=== PATIENT | female | born 1950 | race Caucasian/White ===

== ENCOUNTER → 2023-09-15 18:09 | Outpatient (CLI) | payer MEDICARE, OTHER, SELFPAY ==
--- NOTE | 2023-09-15 18:13 | DI.MRI.S_ITS ---
PROCEDURE: MR LUMBAR SPINE WO CON INDICATIONS: Progressive spinal stenosis TECHNIQUE: Noncontrast sagittal T1 spin echo and T2 fast echo, sagittal STIR, and T2 fast spin echo through the lumbar spine. In cases with scoliosis, additional coronal T2 fast spin echo may be performed. COMPARISON: None. FINDINGS: Image quality: Excellent. Alignment and Curvature: Mild dextrocurvature of the lumbar spine. Mild retrolisthesis of L1 on L2 and L2 on L3. Mild anterolisthesis of L4 on L5 and L5 on S1. Bone Marrow: Multilevel degenerative endplate changes. Schmorl's node involving the superior endplate of L4. Marrow is of normal overall signal. No acute vertebral body compression fractures. Spinal Cord: Conus medullaris terminates at the L2 level. Visualized cord demonstrates normal signal and size. Paraspinous Soft Tissues: No paravertebral masses. T12-L1: Severe disc desiccation height loss. Small posterior disc bulge. Facet arthropathy. Mild central canal and mild bilateral neural foraminal stenosis. L1-L2: Severe disc desiccation height loss. Small posterior disc bulge. Facet arthropathy. No significant central canal stenosis. Moderate left and no right neural foraminal stenosis. L2-L3: Disc desiccation height loss. Posterior disc bulge. Facet arthropathy and thickening of ligamentum flavum. Epidural lipomatosis. Severe central canal stenosis. Moderate right and moderate to severe left neural foraminal stenosis. L3-L4: Disc desiccation height loss. Posterior disc bulge. Facet arthropathy and thickening of ligamentum flavum. Epidural lipomatosis. Severe central canal stenosis. Moderate bilateral neural foraminal stenosis. L4-L5: Disc desiccation height loss. Posterior disc bulge. Facet arthropathy and thickening of ligamentum flavum. Epidural lipomatosis. Severe central canal stenosis. Mild bilateral neural foraminal stenosis. L5-S1: Disc desiccation and height loss. Minimal posterior disc bulge. Facet arthropathy. No central canal stenosis. Moderate bilateral neural foraminal stenosis. IMPRESSION: 1. Multilevel degenerative changes of the lumbar spine as described above. 2. Severe central canal stenosis at L2-L3, L3-L4 and L4-L5. 3. Moderate to severe left neural foraminal stenosis at L2-L3. Multilevel mild and moderate neural foraminal stenosis as above. Dictated by: Flex Jeffries M.D. on 09/16/2023 at 8:15 Approved by: Flex Jeffries M.D. on 09/16/2023 at 8:23
== END ==
PROVIDERS: PCP Family Medicine; Referring Provider Physical Medicine & Rehabilitation; Visit Provider Physical Medicine & Rehabilitation
DX: M48.061 Spinal stenosis, lumbar region without neurogenic claudication (principal); M48.07 Spinal stenosis, lumbosacral region; M47.816 Spondylosis without myelopathy or radiculopathy, lumbar region; M47.817 Spondylosis without myelopathy or radiculopathy, lumbosacral region
CPT/HCPCS: 72148

== ENCOUNTER 2023-10-09 13:20 | Outpatient (CLI) | payer MEDICARE, OTHER, SELFPAY ==
[2023-10-09 14:00] VITALS: BP 158/73; PULSE 85; RESP 16; TEMP 36.4; O2SAT 98
--- NOTE | 2023-10-09 14:00 | DI.RAD.S_ITS ---
PROCEDURE: PAIN L INTERLAMINAR/CAUDAL INJ INDICATIONS: L4/5 translaminar SHEA COMPARISON: [facility], RG, XR L-SPINE 2-3V, 03/24/2023, 11:17. FINDINGS: Fluoroscopic spot filming was performed to verify placement of spinal needle at the L4-5 level, as labeled on the films. Appropriate location of the needle tip was confirmed by injection of iodinated contrast. IMPRESSION: Intraprocedural examination demonstrates appropriate needle positioning. Approved by: Lane Elena M.D. on 10/09/2023 at 21:54
[2023-10-09 14:35] VITALS: BP 144/72; PULSE 77; RESP 18; O2SAT 95
[2023-10-09] MEDS: BUPIVACAINE 0.25% (PF) VIAL 2 ML INJ (14:36)
[2023-10-09] MEDS: BETAMETHASONE 30 MG/5 ML MDV 6 MG INJ (14:36)
[2023-10-09] MEDS: iopamidoL 15 ML VIAL 3 ML INJ (14:36)
[2023-10-09] MEDS: DEXAMETHASONE 10 MG/ML VIAL INJ (14:36)
[2023-10-09 14:40] VITALS: BP 164/72; PULSE 76; RESP 17; O2SAT 97
[2023-10-09 14:45] VITALS: BP 163/76; PULSE 77; RESP 16; O2SAT 97
[2023-10-09 14:50] VITALS: BP 149/61; PULSE 77; RESP 16; O2SAT 98
--- NOTE | 2023-10-09 14:54 | P.PCN_ITS ---
Date/Time/Diagnoses Date of procedure: 10/09/23 Time of procedure: 14:55 Pre-procedure diagnosis: 1. HNP WITH RADICULAR FEATURES, 2. MULTILEVEL CENTRAL STENOSIS, Post-procedure diagnosis: same Procedure Notes Procedure: 1. FLUOROSCOPICALLY GUIDED CONTRAST CONTROLLED INTERLAMINAR EPIDURAL STEROID INJECTION -L4/5 Indications: Dahlia is referred by Dr. Loya for treatment of Bilateral Foraminal Stenosis R>L LE symptoms. Physician: Travis Man Total Fluoroscopy time (seconds): 14 Total sedation minutes: 0 Complications: none Procedure in detail & Post-procedure care: FINDINGS Multilevel Central Spinal Stenosis with Nerve Root Compression DESCRIPTION OF PROCEDURE Fluoroscopically guided, contrast-controlled L4/5 translaminar epidural steroid injection. Following review of allergy and review of potential side effects and complications, including, but not necessarily limited to, infection, allergic reaction, local tissue breakdown, temporary as well as permanent nerve injury, paralysis, stroke and possible , the patient indicated that the patient understood and agreed to proceed. An informed consent document was signed by the patient, witnessed by a nurse, and placed in the patient's chart. Additionally, other treatment options including modalities, medications, and physical therapy were reviewed with the patient. After review of previous anaesthesic history and IV conscious sedation the patient was deemed safe to proceed with today?s procedure with IV conscious sedation as ASA class II designation. Safety time-out was performed to confirm patient ID, procedure to be performed and site of procedure. IV sedation was deemed unnecessary and thus not administered by the RN after DO order, titrated to patient comfort during the course of the procedure while the patient remained responsive to all verbal commands In the prone position, following sterile prep and drape of the lumbar region, the L4/5 translaminar space was identified fluoroscopically. The skin was anesthetized via a 25-gauge, 1.5inch needle with 1% lidocaine solution. At this point, a 22-gauge short bevel spinal needle was atraumatically introduced and advanced under fluoroscopic guidance into the region of the L4/5 translaminar space. Depth was confirmed on lateral view. Radiological data, including multiple fluoroscopic views of the lumbar spine, reveal a spinal needle at the L4/5 translaminar space. Lateral views then show placement of the needle in the epidural space. Subsequent views show contrast material flowing superiorly and inferiorly in the epidural space. No vascular or intrathecal uptake is observed. At this point, using loss of resistance technique with saline and air, the epidural space was entered. This was confirmed following negative aspiration with injection of approximately 1.5cc of Isovue 200, showing excellent epidural flow without vascular or intrathecal uptake. At this point, 1cc of 1% lidocaine solution combined with 2cc or 10mg of dexamethasone and 6mg betamethasone was injected without incident. The patient tolerated the procedure well without signs or symptoms of complications prior to transfer to the recovery area continued monitoring without incident. The patient was then transferred to the recovery area where they were observed for an appropriate period of time after the injection. The patient reported a VAS score of 6 prior to the procedure and a post- procedure VAS of 0. POST OP INSTRUCTIONS The patient was provided a Pain Log to continue to record their response to the target-specific procedure prior to follow-up visit with their referring physician. Additionally, specific post-injection care instructions and a contact number to our office were provided if concerns arise regarding possible complications associated with the procedure are suspected.
[2023-10-09 14:58] VITALS: BP 151/70; PULSE 82; RESP 18; O2SAT 95
== END 2023-10-09 15:09 | disposition home or self-care (01) ==
LOC: RAD 13:20
PROVIDERS: PCP Family Medicine; Referring Provider Physical Medicine & Rehabilitation; Visit Provider Physical Medicine & Rehabilitation
DX: M51.16 Intervertebral disc disorders with radiculopathy, lumbar region (principal); M48.061 Spinal stenosis, lumbar region without neurogenic claudication
CPT/HCPCS: 62323; J0702; J1100; J3490